=== PATIENT | male | born 1940 | race Caucasian/White ===

== ENCOUNTER 2017-01-03 05:41 | Emergency (ER) | payer OTHER ==
[~2017-01-03] VITALS: Ht 182.9 cm; Wt 72.6 kg
--- NOTE | 2017-01-03 05:41 | NUR ---
TO BED 4 BIB PARAMEDICS C/O SYNCOPE. PT AAOX4 NO ACUTE DISTRESS NOTED, RESP EVEN AND UNLABORED. PLACE PT ON CARDIAC MONITORING, CONTINUOUS POX. PUPILS PERRL, PT ABLE TO MOVE ALL EXTREMITIES WELL WITH BILATERAL EQUAL RIPRAP PLACER. NO OBVIOUS TRAUMA NOTED AT THIS TIME. PT DENIES PAIN OR DISCOMFORT. 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
[2017-01-03] MEDS ORDERED: IV NS 0.9% 500 ML BAG IV ONE (06:00)
[2017-01-03 06:06] LABS: HEMATOCRIT 41 % (39-51); HEMOGLOBIN 13.9 g/dL (13.5-17.5); LYMPHOCYTES # (AUTO) 0.6 /CMM (0.8-4.8); LYMPHOCYTES % (AUTO) 3.4 % (20.0-44.0); MEAN CORPUSCULAR HEMOGLOBIN 32 PG (26.0-33.0); MEAN CORPUSCULAR HGB CONC 34 g/dl (31.0-36.0); MEAN CORPUSCULAR VOLUME 93 fL (80-96); MONOCYTES # (AUTO) 1.2 /CMM (0.1-1.30); MONOCYTES % (AUTO) 6.8 % (2.0-12.0); NEUTROPHILS # (AUTO) 15.9 /CMM (1.8-8.9); NEUTROPHILS % (AUTO) 89.8 % (43.0-81.0); PLATELET COUNT (AUTO) 137 /CMM (150-450); RDW COEFFICIENT OF VARIATION 14.4 (11.5-15.0); RED BLOOD CELL COUNT(AUTO) 4.39 MIL/uL (4.5-6.0); WHITE BLOOD COUNT (AUTO) 17.7 K/uL (4.3-11.0)
--- NOTE | 2017-01-03 06:08 | NUR ---
ER MD KIMBLE AT BEDSIDE TO EVFEDE PT.
[2017-01-03 06:14] LABS: CALCIUM, SERUM 8.5 mg/dL (8.5-10.1); CARBON DIOXIDE 27 mmol/L (21-32); CHLORIDE 103 mmol/L (98-107); CREATININE 1.5 mg/dL (0.6-1.3); GLUCOSE 136 mg/dL (74-106); POTASSIUM 3.7 mmol/L (3.5-5.1); SODIUM SERUM 138 mmol/L (136-145); UREA NITROGEN, BLOOD 21 mg/dL (7-18)
[2017-01-03 06:23] LABS: TROPONIN I 0.032 ng/mL (0.00-0.056)
[2017-01-03 06:29] LABS: INR 1.15 (0.87-1.13); PROTHROMBIN TIME 12.4 SECS (9.5-12.7)
--- NOTE | 2017-01-03 06:54 | NUR ---
PT TRANSPORTED TO RADIOLOGY FOR CT HEAD.
--- NOTE | 2017-01-03 07:18 | NUR ---
PT BACK FROM RADIOLOGY. PENDING CT RESULT.
[2017-01-03] MEDS ORDERED: IV NS 0.9% 500 ML IV ONE (07:30)
--- NOTE | 2017-01-03 08:29 | NUR ---
URINE OBTAINED SENT TO THE LAB
[2017-01-03 08:36] LABS: APPEARANCE,URINE CLEAR (CLEAR); BILIRUBIN,URINE NEGATIVE (NEGATIVE); BLOOD, URINE 1+ Ery/uL (NEGATIVE); COLOR,URINE YELLOW (YELLOW); KETONES,URINE NEGATIVE (NEGATIVE); LEUKOCYTE ESTERASE ,URINE NEGATIVE (NEGATIVE); NITRITE, URINE POSITIVE (NEGATIVE); PH,URINE 5.5 (5.0-8.0); PROTEIN,URINE 1+ mg/dl (NEGATIVE); UGLUCOSE NEGATIVE (NEGATIVE)
[2017-01-03 08:39] LABS: WBC,URINE 0-2 /HPF (0-3)
[2017-01-03 08:40] LABS: BACTERIA,URINE Moderate /HPF (None Seen); SQUAMOUS EPITHELIAL CELL,UR Few /HPF (None Seen)
--- NOTE | 2017-01-03 08:41 | NUR ---
[facility] CALLED [phone] KIMBLE
[2017-01-03 09:00] VITALS: BP 108/73
--- NOTE | 2017-01-03 09:08 | NUR ---
GAVE REPORT TO MARY ARGUETA [facility] [phone] ACCEPTING James WE[address]S DR. TRANSFER ALS TOOLROOM CHECKER 950 AM
== END 2017-01-03 10:07 | disposition short-term general hospital (02) ==
LOC: ER 05:45
DX: R55 Syncope and collapse (principal); R82.99 Other abnormal findings in urine; Z87.440 Personal history of urinary (tract) infections
CPT/HCPCS: 36415; 51701; 70450; 71010; 80048; 81001; 84484; 85025; 85730; 87077; 87086; 87186; 93005; 99285; A4606; J7040; 81000-TC; Z7610